=== PATIENT | male | born 1945 | race Caucasian/White ===

== ENCOUNTER 2018-05-31 09:48 | Emergency (ER) | payer OTHER ==
[2018-05-31 10:02] VITALS: BMI 27.1
--- NOTE | 2018-05-31 10:29 | PDOC ---
History of Present Illness - General Chief Complaint: Pain, Acute Stated Complaint: RIGHT FOOT PAIN Time Seen by Provider: 05/31/18 10:19 History Source: Patient Exam Limitations: No Limitations - History of Present Illness Initial Comments: 05/31/18 10:36 Patient is a 73-year-old male with past medical history of hypertension, BPH, prediabetes, who presents to the ER for pain to his right foot. Patient states that he noticed swelling to his right foot that has increased and decreased in size over the past 3 days. He states that now it hurts to walk on. Denies trauma or fall. Patient denies fevers, chills, weakness to the extremity, numbness and tingling to the extremity, nausea and vomiting. Past History - Travel Traveled outside of the country in the last 30 days: No Close contact w/someone who was outside of country & ill: No - Past Medical History Allergies/Adverse Reactions: Allergies Allergy/AdvReac Type Severity Reaction Status Date / Time No Known Drug Allergies Allergy Verified 03/18/14 18:38 Home Medications: Ambulatory Orders Amlodipine Besylate [Norvasc] 10 mg PO DAILY 12/30/11 Cephalexin Monohydrate [Keflex -] 500 mg PO BID #14 capsule 05/31/18 Ibuprofen 600 mg PO Q6H #30 tablet 05/31/18 Sulfamethoxazole/Trimethoprim [Bactrim Ds -] 1 tab PO BID #14 tablet 05/31/18 Tamsulosin HCl [Flomax] 0.4 mg PO DAILY 05/31/18 Anemia: No Asthma: No Cancer: No Cardiac Disorders: No CVA: No COPD: Yes CHF: No Dementia: No Diabetes: No GI Disorders: No Disorders: Yes (enlarged prostate) HTN: Yes Hypercholesterolemia: No Liver Disease: No Seizures: No Thyroid Disease: No - Surgical History Abdominal Surgery: Yes (HERNIA REPAIR) Appendectomy: No Cardiac Surgery: No Cholecystectomy: No Lung Surgery: No Neurologic Surgery: No Orthopedic Surgery: Yes (LEFT ARTHROSCOPY,RIGHT ROTATOR CUFF REPAIR) - Suicide/Smoking/Psychosocial Hx Smoking History: Current every day smoker Have you smoked in the past 12 months: Yes Number of Cigarettes Smoked Daily: 30 Information on smoking cessation initiated: No 'Breaking Loose' booklet given: 12/30/11 Hx Alcohol Use: No Drug/Substance Use Hx: No Substance Use Type: None Hx Substance Use Treatment: No Review of Systems - Review of Systems Able to Perform ROS?: Yes Comments:: 05/31/18 14:09 CONSTITUTIONAL: Absent: fever, chills, diaphoresis, generalized weakness, malaise, loss of appetite HEENT: Absent: rhinorrhea, nasal congestion, throat pain, throat swelling, difficulty swallowing, mouth swelling, ear pain, eye pain, visual Changes CARDIOVASCULAR: Absent: chest pain, loss of consciousness, palpitations, irregular heart rate, peripheral edema RESPIRATORY: Absent: cough, shortness of breath, dyspnea with exertion, orthopnea, wheezing, stridor, hemoptysis GASTROINTESTINAL: Absent: abdominal pain, abdominal distension, nausea, vomiting, diarrhea, constipation, melena, hematochezia GENITOURINARY: Absent: dysuria, frequency, urgency, hesitancy, hematuria, flank pain, genital pain MUSCULOSKELETAL: Present: R foot pain Absent: myalgia, arthralgia, joint swelling SKIN: Absent: rash, itching, pallor HEMATOLOGIC/IMMUNOLOGIC: Absent: easy bleeding, easy bruising, lymphadenopathy, frequent infections ENDOCRINE: Absent: unexplained weight gain, unexplained weight loss, heat intolerance, cold intolerance NEUROLOGIC: Absent: headache, focal weakness or paresthesias, dizziness, unsteady gait, seizure, mental status changes, bladder or bowel incontinence PSYCHIATRIC: Absent: anxiety, depression, suicidal or homicidal ideation, hallucinations. Is the patient limited Slovenian proficient: No *Physical Exam - Vital Signs Last Vital Signs Temp Pulse Resp BP Pulse Ox 98.1 F 67 18 160/64 99 05/31/18 10:01 05/31/18 10:01 05/31/18 10:01 05/31/18 10:05/31/18 10:01 - Physical Exam Comments: 05/31/18 14:11 GENERAL: Well developed, well nourished. Awake and alert. No acute distress. HEENT: Normocephalic, atraumatic. PERRLA, EOMI. No conjunctival pallor. Sclera are non- icteric. Moist mucous membranes. Oropharynx is clear. NECK: Supple. Full ROM. No JVD. Carotid pulses 2+ and symmetric, without bruits. No thyromegaly. No lymphadenopathy. CARDIOVASCULAR: Regular rate and rhythm. No murmurs, rubs, or gallops. Distal pulses are 2+ and symmetric. PULMONARY: No evidence of respiratory distress. Lungs clear to auscultation bilaterally. No wheezing, rales or rhonchi. ABDOMINAL: Soft. Non-tender. Non-distended. No rebound or guarding. No organomegaly. Normoactive bowel sounds. MUSCULOSKELETAL Tenderness to palpation of the right medial volar foot. Fluctuance felt underneath the foot. Normal range of motion at all joints. No bony deformities or tenderness. No CVA tenderness. EXTREMITIES: No cyanosis. No clubbing. No edema. No calf tenderness. SKIN: No evidence of cellulitis. Warm and dry. Normal capillary refill. No rashes. No jaundice. NEUROLOGICAL: Alert, awake, appropriate. Cranial nerves 2-12 intact. No deficits to light touch and temperature in face, upper extremities and lower extremities. No motor deficits in the in face, upper extremities and lower extremities. Normoreflexic in the upper and lower extremities. Normal speech. Toes are down- going bilaterally. Gait is normal without ataxia. PSYCHIATRIC: Cooperative. Good eye contact. Appropriate mood and affect. Moderate Sedation - Procedure Monitoring Vital Signs: Procedure Monitoring Vital Signs Temperature 98.1 F 05/31/18 10:01 Pulse Rate 67 05/31/18 10:01 Respiratory Rate 18 05/31/18 10:01 Blood Pressure 160/64 05/31/18 10:01 O2 Sat by Pulse Oximetry (%) 99 05/31/18 10:01 ED Treatment Course - LABORATORY CBC & Chemistry Diagram: 05/31/18 10:44 05/31/18 10:44 Medical Decision Making - Medical Decision Making 05/31/18 12:37 Patient 73-year-old male past medical history of hypertension, BPH, prediabetes , who presents to the ER for worsening pain to his right foot. On exam patient with fluctuance to the right medial volar foot no evidence of cellulitis. Questionable skin infection? Basic labs ordered, x-ray and ultrasound ordered for further evaluation of this fluctuance. Re-evaluate 05/31/18 15:37 Lab work is grossly normal, no leukocytosis, electrolytes are grossly normal. X-ray shows no fracture or dislocation. Ultrasound shows hypervascularity to the foot possible early abscess/cellulitis We'll treat with antibiotics and Motrin at this time. Podiatry follow-up given. Discharge home I discussed the physical exam findings, ancillary test results and final diagnoses with the patient. I answered all of the patient's questions. The patient was satisfied with the care received and felt comfortable with the discharge plan and treatment plan. The Patient agrees to follow up with the primary care physician/specialist within 24-72 hours. Return precautions were given. *DC/Admit/Observation/Transfer Diagnosis at time of Disposition: Cellulitis Qualifiers: Site of cellulitis: extremity Site of cellulitis of extremity: lower extremity Laterality: right Qualified Code(s): L03.115 - Cellulitis of right lower limb - Discharge Dispostion Disposition: HOME Condition at time of disposition: Stable Decision to Admit order: No - Prescriptions Prescriptions: Cephalexin Monohydrate [Keflex -] 500 mg PO BID #14 capsule Ibuprofen 600 mg PO Q6H #30 tablet Sulfamethoxazole/Trimethoprim [Bactrim Ds -] 1 tab PO BID #14 tablet - Referrals Referrals: Willy Mahoney MD [Staff Physician] - James Lal DPM [Staff Physician] - - Patient Instructions Printed Discharge Instructions: DI for Cellulitis -- Adult Additional Instructions: You have cellulitis. This is a skin infection. Please take the Bactrim and Keflex twice a day for one week. Please take all the antibiotics even if you feel better. You may use warm water soaks to the area. Please do this approximately 4-5 times a day. Please avoid shaving the skin around the area of redness. You may take Tylenol or Motrin as needed for pain. Follow the manufacture's instructions Please follow up Podiatry in 2-3 days for further evaluation Return to the emergency department if you have worsening redness, fevers, increasing pain, or have any changes in your symptoms. - Post Discharge Activity
[2018-05-31 10:56] LABS: BASO % 0.5 % (0-2.0); HEMATOCRIT 43.7 % (35.4-49); HEMOGLOBIN 15.8 GM/dL (11.7-16.9); LYMPH % 18.4 % (8-40); MCH 31.5 pg (25.7-33.7); MCHC 36.1 g/dl (32.0-35.9); MEAN CELL VOLUME 87.2 fl (80-96); MONO % 6.3 % (3.8-10.2); NEUT % 72.8 % (42.8-82.8); PLATELET COUNT 178 K/MM3 (134-434); RBC 5.01 M/mm3 (4.00-5.60); RDW 13.4 % (11.9-15.9); WHITE BLOOD COUNT 11.4 K/mm3 (4.0-10.0)
[2018-05-31 11:23] LABS: ALBUMIN 4.4 g/dl (3.4-5.0); ALK PHOS 80 U/L (45-117); ANION GAP 6 MMOL/L (8-16); BILIRUBIN,TOTAL 0.6 mg/dL (0.2-1); BLOOD UREA NITROGEN 19 mg/dL (7-18); CALCIUM 9.5 mg/dL (8.5-10.1); CHLORIDE 104 mmol/L (98-107); CO2 29 mmol/L (21-32); CREATININE 1.2 mg/dL (0.55-1.3); GLUCOSE,RANDOM 93 mg/dL (74-106); POTASSIUM 4.4 mmol/L (3.5-5.1); SGOT/AST 14 U/L (15-37); SGPT/ALT 32 U/L (13-61); SODIUM 139 mmol/L (136-145); TOT PROT 7.8 g/dl (6.4-8.2); URIC ACID 6.7 mg/dL (2.6-7.2)
[2018-05-31] MEDS ORDERED: IBUPROFEN 400 MG TABLET (FP) PO ONE ×2 (11:26→11:27)
[2018-05-31 12:18] VITALS: BP 138/71; PULSE 61; TEMP 99.1
== END 2018-05-31 14:36 | disposition home or self-care (01) ==
LOC: JER 09:48
DX: L03.115 Cellulitis of right lower limb (principal); I10 Essential (primary) hypertension; N40.0 Benign prostatic hyperplasia without lower urinary tract symptoms; R73.03 Prediabetes
CPT/HCPCS: 36415; 73630-TC-RT-FY; 76882-TC-RT-FY; 80053; 84550; 85025; 99282-25

== ENCOUNTER 2019-10-25 04:45 | Day surgery (SDC) | payer OTHER ==
[2019-10-24 15:28] VITALS: BMI 27.4
[2019-10-25] MEDS ORDERED: LIDOCAINE HCL/PF 2% SDV 5ML VIAL ONE (07:01)
[2019-10-25] MEDS ORDERED: EPHEDRINE SULFATE/0.9% NACL/PF 50 MG/10 ML SYRINGE NR ONE (07:01)
[2019-10-25] MEDS ORDERED: PROPOFOL 20 ML ONE ×2 (07:01)
[2019-10-25] MEDS ORDERED: SUCCINYLCHOLINE CHLORIDE 200 MG/10 ML SYRINGE ONE ×2 (07:02)
[2019-10-25] MEDS ORDERED: MIDAZOLAM HCL 2 MG/2 ML SINGLE DOSE VIAL ONE (07:02)
[2019-10-25] MEDS ORDERED: DEXAMETHASONE SOD PHOSPHATE 4 MG/1 ML VIAL ONE (07:29)
[2019-10-25] MEDS ORDERED: ACETAMINOPHEN 1000 MG/100 ML VIAL (NON FORMULARY) IVPB ONE ×2 (07:42→09:10)
--- NOTE | 2019-10-25 07:43 | HP ---
History & Physical Update - History History: No Change - Physical Physical: No Change - Assessment Assessment: No Change - Plan Plan: No Change
[2019-10-25] MEDS ORDERED: IBUPROFEN 800 MG/8 ML IJ IVPB SCH (07:45)
[2019-10-25] MEDS ORDERED: DEXTROSE 5%-0.45% SALINE 1,000 ML IV SCH (07:45)
[2019-10-25] MEDS ORDERED: ceFAZolin 2 GRAM PREMIX BAG IVPB ONE (07:55)
[2019-10-25] MEDS ORDERED: ONDANSETRON 4 MG/2 ML VIAL IVPUSH PRN (08:12)
[2019-10-25] MEDS ORDERED: oxyCODONE HCL 5 MG TABLET PO PRN (08:12)
[2019-10-25] MEDS ORDERED: LACTATED RINGERS SOLUTION 1,000 ML IV SCH (08:15)
[2019-10-25] MEDS ORDERED: ACETAMINOPHEN INJECTION 100 ML IVPB ONE (08:58)
[2019-10-25] MEDS ORDERED: IBUPROFEN 800 MG/8 ML IJ IVPB ONE ×2 (09:24→09:38)
[2019-10-25] MEDS ORDERED: oxyCODONE HCL 5 MG TABLET ONE (12:51)
[2019-10-25 13:00] VITALS: TEMP 98
[2019-10-25 14:04] VITALS: BP 140/69; PULSE 66
--- NOTE | 2019-10-25 20:03 | OP ---
DATE OF OPERATION: 10/25/2019 PREOPERATIVE DIAGNOSIS: Benign prostatic hypertrophy with lower urinary tract symptoms and slow urinary stream. POSTOPERATIVE DIAGNOSIS: Benign prostatic hypertrophy with lower urinary tract symptoms and slow urinary stream. PROCEDURE: GreenLight laser prostatectomy. SURGEON: Anup Lundberg MD. ANESTHESIA: General anesthesia. ANESTHESIOLOGIST: Vandana Harris MD. ESTIMATED BLOOD LOSS: 25 mL. SPECIMENS: Prostate tissue. FINDINGS: Obstructed lateral prostate tissue with enlarged middle lobe. Findings, trabeculation of the bladder, both ureteral orifices visualized, urinary sphincter also visualized. DRAINS: 20 Mongolian Thayer catheter. PREOPERATIVE INDICATION: The patient is a 74-year-old man with severe lower urinary tract symptoms including slow urinary stream secondary to enlarged prostate. His prostate was measured at approximately 120 g on MRI. PSA is 3.7. He had an MRI which ruled out any suspicious lesions for prostate cancer. He comes to OR today for GreenLight laser prostatectomy. Risks, benefits, and alternatives discussed with the patient including risk of bleeding, infection, urinary incontinence, bladder injury. DESCRIPTION OF PROCEDURE: The patient was brought to the OR, placed on the table in the supine position. Given general anesthesia and IV antibiotics and placed in the modified lithotomy position. The groin was prepped and draped sterilely. Timeout was performed. Cystoscopy was performed. Urethra was unremarkable. Sphincter was visualized. The prostate was enlarged and obstructed. There were large lateral lobes, and there was a very large middle lobe as well which was obstructing the bladder neck. The bladder was examined. There were trabeculations throughout. Both UOs were visualized. Using the GreenLight laser, initially the middle lobe was treated. After this was done, both UOs were seen and had no evidence of injury. The portion of the middle lobe that was amputated with the laser was pulled out with the grasper and sent for pathology. The lateral lobes were then treated with the GreenLight laser similarly to open up the prostate channel. At the bladder neck and at the verumontanum, laser energy of 60 was used; for the rest of the prostate energy of 160 was used. At the end of the procedure after 120,000 joules were used, there was an open prostatic channel. No significant bleeding was visualized. The bladder did not appear injured either . The sphincter was also intact. The Thayer catheter was placed. The patient was woken up. Lacey [id number]
== END 2019-10-25 14:00 | disposition home or self-care (01) ==
LOC: JASU-SURG 04:45
PROVIDERS: ATTEND Urology
PROC: 0VT08ZZ Resection of Prostate, Via Natural or Artificial Opening Endoscopic (ICD-10-PCS; principal; 2019-10-25 07:30)
DX: N40.1 Benign prostatic hyperplasia with lower urinary tract symptoms (principal); R39.198 Other difficulties with micturition
CPT/HCPCS: 94760; J0131

== ENCOUNTER 2022-05-03 11:42 | Inpatient (IN) | payer OTHER ==
[2022-05-03] MEDS ORDERED: ALBUTEROL SO4 2.5/IPRATROPIUM 0.5 INH SOL 3 ML VIAL.NEB. NEB ONE ×3 (11:56→14:13)
[2022-05-03] MEDS ORDERED: methylPREDNISolone NA SUCC 125 MG/2 ML VIAL IVPB ONE (12:43)
[2022-05-03] MEDS ORDERED: methylPREDNISolone NA SUCC 125 MG/2 ML VIAL ONE (12:58)
[2022-05-03 13:37] LABS: INR 1.18 (0.83-1.09); PROTHROMBIN TIME (PATIENT) 13.6 SEC (9.7-13.0)
[2022-05-03 13:39] LABS: ACTIVATED PTT 34.7 SECONDS (25.2-36.5)
[2022-05-03 13:46] LABS: ALBUMIN 3.5 g/dl (3.4-5.0); BILIRUBIN,TOTAL 0.7 mg/dl (0.2-1); CALCIUM 8.5 mg/dl (8.5-10); CREATININE 1.9 mg/dl (0.55-1.3); MAGNESIUM 2.2 mg/dL (1.8-2.4)
[2022-05-03 13:54] LABS: HEMATOCRIT 35.1 % (35.4-49); HEMOGLOBIN 12.4 G/dL (11.7-16.9); MCH 30.8 pg (25.7-33.7); MCHC 35.3 g/dl (32.0-35.9); MEAN CELL VOLUME 87.2 fl (80-96); MEAN PLT VOLUME 8.6 fl (7.5-11.1); PLATELET COUNT 224.7 10^3/uL (134-434); RBC 4.03 10^6/uL (4.00-5.60); RDW 13.3 % (11.9-15.9); WHITE BLOOD COUNT 10.4 10^3/uL (4.0-10.8)
[2022-05-03] MEDS ORDERED: SODIUM CHLORIDE 0.9% 1000 ML INFUS.BAG IV ONE (14:07)
[2022-05-03] MEDS ORDERED: ALBUTEROL SO4 0.083% IH SOL 2.5 MG/3 ML VIAL.NEB. NEB ONE (14:10)
[2022-05-03] MEDS ORDERED: guaiFENesin/CODEINE 10 ML UNIT-DOSE CUPS PO ONE ×2 (14:56→19:51)
[2022-05-03] MEDS ORDERED: guaiFENesin/CODEINE 10 ML UNIT-DOSE CUPS ONE ×2 (14:59→19:51)
[2022-05-03 16:03] LABS: VENOUS BASE EXCESS -2.7 mmol/L (-2-2); VENOUS O2 SATURATION 77.6 % (70-80); VENOUS PCO2 43.4 mmHg (38-52); VENOUS PH 7.343 (7.310-7.410)
[2022-05-03 16:30] LABS: N-TERMINAL BNP 3430.8 pg/ml (5-450)
[2022-05-03 16:46] LABS: PLATELET ESTIMATE ADEQUATE
[2022-05-03 17:34] LABS: CALCIUM 7.9 mg/dl (8.5-10); CREATININE 1.7 mg/dl (0.55-1.3)
[2022-05-03] MEDS ORDERED: AZITHROMYCIN IVPB 500 MG in DEXTROSE 5%-WATER - 250 ML IVPB ONE (23:53)
[2022-05-04] MEDS ORDERED: AZITHROMYCIN IVPB 500 MG/250 ML BAG IVPB ONE (00:41)
[2022-05-04] MEDS: guaiFENesin 200 MG/10 ML 10 ML UNIT-DOSE CUPS PO PRN (00:52)
[2022-05-04] MEDS: methylPREDNISolone NA SUCC 40 MG/1 ML VIAL IVPUSH SCH ×3 (01:50→17:09)
[2022-05-04 07:09] VITALS: BMI 60.5
[2022-05-04 07:59] LABS: BILIRUBIN,TOTAL 0.5 mg/dl (0.2-1); CALCIUM 8.1 mg/dl (8.5-10); CREATININE 1.5 mg/dl (0.55-1.3); TOT PROT 6.1 g/dl (6.4-8.2)
[2022-05-04 09:18] LABS: CHOLESTEROL 154 mg/dl (50-200); HDL CHOLESTEROL 22 mg/dl (40-60); LDL CHOLESTEROL (ONLY DFH) 109 mg/dl (5-100); TRIGLYCERIDES 117 mg/dl (0-150)
[2022-05-04] MEDS: ATORVASTATIN CA 80 MG TABLET (FP) PO SCH ×2 (09:52→21:45)
[2022-05-04] MEDS: CLOPIDOGREL BISULFATE 75 MG TABLET (FP) PO SCH (09:52)
[2022-05-04] MEDS: HEPARIN NA (PORCINE) 5,000 UNITS/ML 1ML VIAL SQ SCH ×2 (09:52→21:46)
[2022-05-04] MEDS: ASPIRIN 81 MG CHEWABLE TABLETS PO SCH (09:52)
[2022-05-04 10:27] LABS: HEMOGLOBIN 10.7 GM/dL (11.7-16.9); MCHC 33.5 g/dl (32.0-35.9); MEAN CELL VOLUME 86.6 fl (80-96); MEAN PLT VOLUME 8.7 fl (7.5-11.1); PLATELET COUNT 232 10^3/uL (134-434); RBC 3.69 M/mm3 (4.00-5.60); WHITE BLOOD COUNT 9.5 K/mm3 (4.0-10.0)
[2022-05-04 12:18] LABS: ANISOCYTOSIS 0; HELMET CELLS 0; HOWELL-JOLLY BODIES 0; MACROCYTOSIS 0; OVALOCYTE 0; ROULEAU 0; SICKELED CELLS 0; TARGET CELLS 0; TEAR DROP CELLS 0; TOXIC GRANULATION 0
[2022-05-05] MEDS: guaiFENesin 200 MG/10 ML 10 ML UNIT-DOSE CUPS PO PRN (01:18)
[2022-05-05] MEDS: methylPREDNISolone NA SUCC 40 MG/1 ML VIAL IVPUSH SCH ×3 (01:18→18:26)
[2022-05-05 07:47] LABS: ALBUMIN 2.9 g/dl (3.4-5.0); BILIRUBIN,TOTAL 0.4 mg/dl (0.2-1); CALCIUM 8.3 mg/dl (8.5-10); CREATININE 1.6 mg/dl (0.55-1.3); TOT PROT 5.7 g/dl (6.4-8.2)
[2022-05-05 09:40] LABS: BASO % 0.2 % (0-2.0); HEMOGLOBIN 10.5 GM/dL (11.7-16.9); LYMPH % 8.2 % (8-40); MCH 29.3 pg (25.7-33.7); MEAN CELL VOLUME 86.1 fl (80-96); MEAN PLT VOLUME 8.4 fl (7.5-11.1); MONO % 4.5 % (3.8-10.2); NEUT % 87.1 % (42.8-82.8); PLATELET COUNT 245 10^3/uL (134-434); RBC 3.61 M/mm3 (4.00-5.60); RDW 13.9 % (11.9-15.9); WHITE BLOOD COUNT 15.8 K/mm3 (4.0-10.0)
[2022-05-05] MEDS: amLODIPine BESYLATE 5 MG TABLET (FP) PO SCH (09:55)
[2022-05-05] MEDS: AZITHROMYCIN IVPB 500 MG/250 ML BAG IVPB SCH (09:55)
[2022-05-05] MEDS: ASPIRIN 81 MG CHEWABLE TABLETS PO SCH (09:55)
[2022-05-05] MEDS: CLOPIDOGREL BISULFATE 75 MG TABLET (FP) PO SCH (09:55)
[2022-05-05] MEDS: HEPARIN NA (PORCINE) 5,000 UNITS/ML 1ML VIAL SQ SCH ×2 (09:55→22:17)
[2022-05-05 10:10] LABS: ANISOCYTOSIS 0; HELMET CELLS 0; HOWELL-JOLLY BODIES 0; MACROCYTOSIS 0; OVALOCYTE 0; ROULEAU 0; SICKELED CELLS 0; TARGET CELLS 0; TEAR DROP CELLS 0; TOXIC GRANULATION 0
[2022-05-05] MEDS: ALBUTEROL SO4 0.083% IH SOL 2.5 MG/3 ML VIAL.NEB. NEB PRN (22:17)
[2022-05-05] MEDS: ATORVASTATIN CA 80 MG TABLET (FP) PO SCH (22:17)
[2022-05-06] MEDS: methylPREDNISolone NA SUCC 40 MG/1 ML VIAL IVPUSH SCH ×3 (01:16→17:00)
[2022-05-06 07:53] LABS: BILIRUBIN,TOTAL 0.5 mg/dl (0.2-1); CALCIUM 8.6 mg/dl (8.5-10); CREATININE 1.5 mg/dl (0.55-1.3); TOT PROT 5.9 g/dl (6.4-8.2)
[2022-05-06 09:04] LABS: HEMATOCRIT 32.5 % (35.4-49); HEMOGLOBIN 10.9 GM/dL (11.7-16.9); MCH 28.9 pg (25.7-33.7); MCHC 33.6 g/dl (32.0-35.9); MEAN CELL VOLUME 86.2 fl (80-96); MEAN PLT VOLUME 8.2 fl (7.5-11.1); PLATELET COUNT 273 10^3/uL (134-434); RBC 3.77 M/mm3 (4.00-5.60); RDW 13.7 % (11.9-15.9); WHITE BLOOD COUNT 20.9 K/mm3 (4.0-10.0)
[2022-05-06] MEDS ORDERED: LISINOPRIL 5 MG TABLET PO SCH (10:00)
[2022-05-06 10:09] LABS: ANISOCYTOSIS 0; HELMET CELLS 0; HOWELL-JOLLY BODIES 0; MACROCYTOSIS 0; OVALOCYTE 0; ROULEAU 0; SICKELED CELLS 0; TARGET CELLS 0; TEAR DROP CELLS 0; TOXIC GRANULATION 0
[2022-05-06] MEDS: ASPIRIN 81 MG CHEWABLE TABLETS PO SCH (10:22)
[2022-05-06] MEDS: amLODIPine BESYLATE 5 MG TABLET (FP) PO SCH (10:22)
[2022-05-06] MEDS: CLOPIDOGREL BISULFATE 75 MG TABLET (FP) PO SCH (10:22)
[2022-05-06] MEDS: HEPARIN NA (PORCINE) 5,000 UNITS/ML 1ML VIAL SQ SCH ×2 (10:22→21:22)
[2022-05-06] MEDS: AZITHROMYCIN IVPB 500 MG/250 ML BAG IVPB SCH (10:23)
[2022-05-06] MEDS ORDERED: amLODIPine BESYLATE 5 MG TABLET (FP) PO ONE (16:02)
[2022-05-06] MEDS: ALBUTEROL SO4 0.083% IH SOL 2.5 MG/3 ML VIAL.NEB. NEB PRN (18:24)
[2022-05-06] MEDS: guaiFENesin 200 MG/10 ML 10 ML UNIT-DOSE CUPS PO PRN (18:25)
[2022-05-06] MEDS: ATORVASTATIN CA 80 MG TABLET (FP) PO SCH (21:22)
[2022-05-07] MEDS: methylPREDNISolone NA SUCC 40 MG/1 ML VIAL IVPUSH SCH ×3 (01:50→17:28)
[2022-05-07 08:17] LABS: ALBUMIN 3.1 g/dl (3.4-5.0); BILIRUBIN,TOTAL 0.6 mg/dl (0.2-1); CALCIUM 8.4 mg/dl (8.5-10); CREATININE 1.4 mg/dl (0.55-1.3)
[2022-05-07] MEDS ORDERED: SODIUM ZIRCONIUM CYCLOSILICATE (LOKELMA) 5 GM PACKET PO SCH (10:00)
[2022-05-07] MEDS: guaiFENesin 200 MG/10 ML 10 ML UNIT-DOSE CUPS PO PRN (10:04)
[2022-05-07] MEDS: amLODIPine BESYLATE 10 MG TABLET (FP) PO SCH (10:04)
[2022-05-07] MEDS: CLOPIDOGREL BISULFATE 75 MG TABLET (FP) PO SCH (10:04)
[2022-05-07] MEDS: HEPARIN NA (PORCINE) 5,000 UNITS/ML 1ML VIAL SQ SCH ×2 (10:04→21:20)
[2022-05-07] MEDS: ASPIRIN 81 MG CHEWABLE TABLETS PO SCH (10:04)
[2022-05-07] MEDS: AZITHROMYCIN IVPB 500 MG/250 ML BAG IVPB SCH (10:07)
[2022-05-07 10:35] LABS: HEMATOCRIT 34.3 % (35.4-49); HEMOGLOBIN 11.1 GM/dL (11.7-16.9); MCH 28.2 pg (25.7-33.7); MCHC 32.5 g/dl (32.0-35.9); MEAN CELL VOLUME 86.9 fl (80-96); MEAN PLT VOLUME 8.1 fl (7.5-11.1); PLATELET COUNT 298 10^3/uL (134-434); RBC 3.95 M/mm3 (4.00-5.60); RDW 13.9 % (11.9-15.9); WHITE BLOOD COUNT 28.4 K/mm3 (4.0-10.0)
[2022-05-07] MEDS: ATORVASTATIN CA 80 MG TABLET (FP) PO SCH (21:20)
[2022-05-07] MEDS: ALBUTEROL SO4 0.083% IH SOL 2.5 MG/3 ML VIAL.NEB. NEB PRN (22:44)
[2022-05-08] MEDS: methylPREDNISolone NA SUCC 40 MG/1 ML VIAL IVPUSH SCH ×3 (03:32→18:05)
[2022-05-08 09:12] LABS: ALBUMIN 3.3 g/dl (3.4-5.0); BILIRUBIN,TOTAL 0.7 mg/dl (0.2-1); CALCIUM 9.1 mg/dl (8.5-10); CREATININE 1.5 mg/dl (0.55-1.3); TOT PROT 6.2 g/dl (6.4-8.2)
[2022-05-08] MEDS: HEPARIN NA (PORCINE) 5,000 UNITS/ML 1ML VIAL SQ SCH ×2 (09:48→21:39)
[2022-05-08] MEDS: amLODIPine BESYLATE 10 MG TABLET (FP) PO SCH (09:48)
[2022-05-08] MEDS: ASPIRIN 81 MG CHEWABLE TABLETS PO SCH (09:48)
[2022-05-08] MEDS: CLOPIDOGREL BISULFATE 75 MG TABLET (FP) PO SCH (09:49)
[2022-05-08] MEDS: CEFUROXIME AXETIL 500 MG TABLET PO SCH ×2 (09:52→21:39)
[2022-05-08 11:34] LABS: HEMOGLOBIN 12.1 G/dL (11.7-16.9); MCHC 34.6 g/dl (32.0-35.9); MEAN CELL VOLUME 86.9 fl (80-96); MEAN PLT VOLUME 8.2 fl (7.5-11.1); PLATELET COUNT 314.3 10^3/uL (134-434); RBC 4.03 10^6/uL (4.00-5.60); RDW 14.2 % (11.9-15.9); WHITE BLOOD COUNT 32.8 10^3/uL (4.0-10.8)
[2022-05-08] MEDS ORDERED: SODIUM ZIRCONIUM CYCLOSILICATE (LOKELMA) 5 GM PACKET PO SCH (14:45)
[2022-05-08] MEDS ORDERED: LISINOPRIL 5 MG TABLET PO SCH (14:45)
[2022-05-08] MEDS ORDERED: MELATONIN 5 MG TABLETS PO PRN (14:53)
[2022-05-08] MEDS: SODIUM ZIRCONIUM CYCLOSILICATE (LOKELMA) 5 GM PACKET PO SCH (18:05)
[2022-05-08] MEDS: ATORVASTATIN CA 80 MG TABLET (FP) PO SCH (21:39)
[2022-05-09] MEDS: methylPREDNISolone NA SUCC 40 MG/1 ML VIAL IVPUSH SCH (01:54)
[2022-05-09 08:34] LABS: CREATININE 1.3 mg/dl (0.55-1.3)
[2022-05-09 08:52] LABS: HEMATOCRIT 32.2 % (35.4-49); HEMOGLOBIN 10.8 G/dL (11.7-16.9); MCH 29.2 pg (25.7-33.7); MCHC 33.6 g/dl (32.0-35.9); MEAN CELL VOLUME 87.1 fl (80-96); MEAN PLT VOLUME 8.1 fl (7.5-11.1); PLATELET COUNT 298.6 10^3/uL (134-434); WHITE BLOOD COUNT 29.6 10^3/uL (4.0-10.8)
[2022-05-09 09:16] LABS: CALCIUM 8.2 mg/dl (8.5-10)
[2022-05-09] MEDS ORDERED: BUDESONIDE/FORMETEROL FUMARATE 160/4.5 mcg INHALER IH SCH (10:00)
[2022-05-09] MEDS ORDERED: LISINOPRIL 10 MG TABLET PO SCH (10:00)
[2022-05-09] MEDS ORDERED: predniSONE 20 MG TABLET (UD) PO SCH (10:00)
[2022-05-09] MEDS: CEFUROXIME AXETIL 500 MG TABLET PO SCH (10:49)
[2022-05-09] MEDS: amLODIPine BESYLATE 10 MG TABLET (FP) PO SCH (10:49)
[2022-05-09] MEDS: CLOPIDOGREL BISULFATE 75 MG TABLET (FP) PO SCH (10:49)
[2022-05-09] MEDS: SODIUM ZIRCONIUM CYCLOSILICATE (LOKELMA) 5 GM PACKET PO SCH (10:50)
[2022-05-09] MEDS: HEPARIN NA (PORCINE) 5,000 UNITS/ML 1ML VIAL SQ SCH (10:50)
[2022-05-09] MEDS: ASPIRIN 81 MG CHEWABLE TABLETS PO SCH (10:50)
[2022-05-09 10:58] VITALS: BP 171/56; PULSE 68; RESP 18; TEMP 98.4
== END 2022-05-09 13:16 | disposition home or self-care (01) | DRG 191 ==
LOC: FER 11:42 → UNDOADMOB 16:03 → FM/S 16:03 → OBSVTOIN 17:11 → INTOOBSV 17:11 → OBSVTOIN 05-04 17:11 → FM/S 05-04 17:11
PROVIDERS: ADMIT Internal Medicine; ATTEND Internal Medicine
DX: J44.1 Chronic obstructive pulmonary disease with (acute) exacerbation (principal); I13.0 Hypertensive heart and chronic kidney disease with heart failure and stage 1 through stage 4 chronic kidney disease, or unspecified chronic kidney disease; N17.9 Acute kidney failure, unspecified; I50.32 Chronic diastolic (congestive) heart failure; I24.8 Other forms of acute ischemic heart disease; N40.0 Benign prostatic hyperplasia without lower urinary tract symptoms; I25.10 Atherosclerotic heart disease of native coronary artery without angina pectoris; R77.8 Other specified abnormalities of plasma proteins; E78.5 Hyperlipidemia, unspecified; F41.9 Anxiety disorder, unspecified; D64.9 Anemia, unspecified; N18.9 Chronic kidney disease, unspecified; R31.9 Hematuria, unspecified; D72.829 Elevated white blood cell count, unspecified; E87.5 Hyperkalemia; J06.9 Acute upper respiratory infection, unspecified; Z95.5 Presence of coronary angioplasty implant and graft
CPT/HCPCS: 0241U-QW; 36415; 71046-TC-FY; 80048; 80053; 80061; 81003; 81015; 82272; 82436; 82803; 82962; 83036; 83735; 83880; 83930; 83935; 84133; 84300; 84439; 84443; 84484; 85025; 85027; 85610; 85730; 93005; 93306-TC; 94640; 97116-GP; 97162-GP; 99285-25; G0378; J1644

== ENCOUNTER 2022-05-25 09:55 | Emergency (ER) | payer OTHER ==
[2022-05-25 10:06] VITALS: BP 163/64; PULSE 62; RESP 20; TEMP 98; BMI 27.4
[2022-05-25] MEDS ORDERED: SILVER NITRATE 75% APPLIC STCK 1 PKT EACH ONE ×2 (10:09→10:22)
[2022-05-25] MEDS ORDERED: LIDOCAINE 1%/EPI 1:100000 (20 ML MULTI DOSE VIAL) IJ ONE (10:25)
[2022-05-25] MEDS ORDERED: LIDO 2%/EPI 1:200000 PRESRVFRE (20 ML SDVIAL) ONE (10:26)
== END 2022-05-25 11:55 | disposition home or self-care (01) ==
LOC: FER 09:55
DX: R04.0 Epistaxis (principal)
CPT/HCPCS: 99283-25

== ENCOUNTER 2022-07-28 05:42 | Day surgery (SDC) | payer OTHER ==
[2022-07-27 10:46] VITALS: BMI 27.3
[2022-07-28] MEDS ORDERED: FENTANYL CITRATE/PF 50 MCG/ML VIAL ONE (11:16)
[2022-07-28 13:15] VITALS: BP 145/65; PULSE 54; RESP 18
[2022-07-28 14:05] VITALS: TEMP 97.2
== END 2022-07-28 12:55 | disposition home or self-care (01) ==
LOC: JASU-ENDO 05:42
PROVIDERS: ATTEND Internal Medicine Gastroenterology
PROC: 0DJD8ZZ Inspection of Lower Intestinal Tract, Via Natural or Artificial Opening Endoscopic (ICD-10-PCS; principal; 2022-07-28 11:00)
DX: Z12.11 Encounter for screening for malignant neoplasm of colon (principal); K64.8 Other hemorrhoids; Z86.010 Personal history of colon polyps
CPT/HCPCS: 88305-TC; 88342-TC

== ENCOUNTER 2024-01-17 16:47 | Inpatient (IN) | payer OTHER ==
[2024-01-17] MEDS ORDERED: ALBUTEROL SO4 2.5/IPRATROPIUM 0.5 INH SOL 3 ML VIAL.NEB. NEB ONE (18:32)
[2024-01-17] MEDS: ALBUTEROL SO4 2.5/IPRATROPIUM 0.5 INH SOL 3 ML VIAL.NEB. NEB SCH (18:37)
[2024-01-17] MEDS ORDERED: methylPREDNISolone NA SUCC 125 MG/2 ML VIAL ONE (18:47)
[2024-01-17 18:51] LABS: BASO % 0.5 % (0-2.0); HEMATOCRIT 31.8 % (35.4-49); HEMOGLOBIN 10.9 GM/dL (11.7-16.9); MCH 29.5 pg (25.7-33.7); MCHC 34.4 g/dl (32.0-35.9); MEAN CELL VOLUME 85.8 fl (80-96); MEAN PLT VOLUME 7.1 fl (7.5-11.1); MONO % 8.4 % (3.8-10.2); NEUT % 70.1 % (42.8-82.8); PLATELET COUNT 148 10^3/uL (134-434); RBC 3.71 M/mm3 (4.00-5.60); RDW 15.1 % (11.9-15.9); WHITE BLOOD COUNT 7.5 K/mm3 (4.0-10.0)
[2024-01-17] MEDS: methylPREDNISolone NA SUCC 125 MG/2 ML VIAL IVPB ONE (18:53)
[2024-01-17 18:57] LABS: INR 0.88 (0.83-1.09); PROTHROMBIN TIME (PATIENT) 10.2 SEC (9.7-13.0)
[2024-01-17 19:11] LABS: POTASSIUM 4.6 mmol/L (3.5-5.1)
[2024-01-17 19:14] LABS: CALCIUM 8.5 mg/dL (8.5-10.1)
[2024-01-17 19:15] LABS: ALBUMIN 3.6 g/dl (3.4-5.0); BLOOD UREA NITROGEN 38.8 mg/dL (7-18)
[2024-01-17 19:18] LABS: CREATININE 2.1 mg/dL (0.55-1.3)
[2024-01-17 19:19] LABS: BILIRUBIN,TOTAL 0.4 mg/dL (0.2-1); TOT PROT 6.3 g/dl (6.4-8.2)
[2024-01-17 19:28] LABS: VENOUS BASE EXCESS -4.8 mmol/L (-2-2); VENOUS O2 SATURATION 73.5 % (70-80); VENOUS PCO2 46.2 mmHg (38-52); VENOUS PH 7.29 (7.310-7.410)
[2024-01-18] MEDS ORDERED: DOCUSATE SODIUM 100 MG CAPSULE (FP) PO PRN (02:36)
[2024-01-18] MEDS ORDERED: ACETAMINOPHEN 325 MG TABLET (FP) PO PRN (02:36)
[2024-01-18] MEDS ORDERED: methylPREDNISolone NA SUCC 40 MG/1 ML VIAL ONE (03:42)
[2024-01-18] MEDS ORDERED: AZITHROMYCIN IVPB 500 MG/250 ML BAG IVPB ONE (03:42)
[2024-01-18] MEDS: AZITHROMYCIN IVPB 500 MG in DEXTROSE 5%-WATER - 250 ML IVPB ONE (03:49)
[2024-01-18] MEDS: methylPREDNISolone NA SUCC 40 MG/1 ML VIAL IVPUSH SCH (03:49)
[2024-01-18 05:28] VITALS: BMI 31.9
[2024-01-18] MEDS: HEPARIN NA (PORCINE) 5,000 UNITS/ML 1ML VIAL SQ SCH (06:56)
[2024-01-18] MEDS: guaiFENesin/D-METHORPHAN TAB.ER.12H PO SCH (06:56)
[2024-01-18 07:04] LABS: HEMATOCRIT 31.1 % (35.4-49); HEMOGLOBIN 10.8 GM/dL (11.7-16.9); MCH 29.9 pg (25.7-33.7); MCHC 34.8 g/dl (32.0-35.9); MEAN CELL VOLUME 86.1 fl (80-96); MEAN PLT VOLUME 7.5 fl (7.5-11.1); PLATELET COUNT 155 10^3/uL (134-434); RBC 3.61 M/mm3 (4.00-5.60); RDW 14.6 % (11.9-15.9); WHITE BLOOD COUNT 9.8 K/mm3 (4.0-10.0)
[2024-01-18 07:14] LABS: POTASSIUM 4.8 mmol/L (3.5-5.1)
[2024-01-18 07:15] LABS: BLOOD UREA NITROGEN 43.4 mg/dL (7-18); CALCIUM 8.3 mg/dL (8.5-10.1); MAGNESIUM 2.1 mg/dL (1.8-2.4)
[2024-01-18 07:19] LABS: CREATININE 2.3 mg/dL (0.55-1.3)
[2024-01-18] MEDS: ALBUTEROL SO4 2.5/IPRATROPIUM 0.5 INH SOL 3 ML VIAL.NEB. NEB SCH (08:20)
[2024-01-18] MEDS: metoPROLOL SUCCINATE 25 MG TAB.SR.24H (FP) PO SCH (09:27)
[2024-01-18] MEDS: amLODIPine BESYLATE 10 MG TABLET (FP) PO SCH (09:29)
[2024-01-18] MEDS: ASPIRIN COATED 81 MG TABLET.EC PO SCH (09:29)
[2024-01-18] MEDS: CHOLECALCIFEROL (VIT D3) 400 UNIT (10 MCG) TABLET PO SCH (09:30)
[2024-01-18] MEDS: TAMSULOSIN HCL 0.4 MG CAP PO SCH (09:31)
[2024-01-18 09:44] LABS: ANISOCYTOSIS 0; HELMET CELLS 0; HOWELL-JOLLY BODIES 0; MACROCYTOSIS 0; OVALOCYTE 0; ROULEAU 0; SICKELED CELLS 0; TARGET CELLS 0; TEAR DROP CELLS 0; TOXIC GRANULATION 0
[2024-01-18] MEDS: BUDESONIDE/FORMETEROL FUMARATE 160/4.5 mcg INHALER IH SCH (15:47)
[2024-01-18] MEDS: NICOTINE 21 MG/24 HOURS TOPICAL PATCH TD SCH (15:48)
[2024-01-18] MEDS: FLUTICASONE PROP 0.05% 16 GM NASAL SPRAY NS SCH (15:48)
[2024-01-18] MEDS: ATORVASTATIN CA 80 MG TABLET (FP) PO SCH (21:38)
[2024-01-18] MEDS ORDERED: ATORVASTATIN CA 40 MG TABLET (FP) PO SCH (22:00)
[2024-01-19] MEDS: guaiFENesin 200 MG/10 ML 10 ML UNIT-DOSE CUPS PO ONE (02:23)
[2024-01-19 08:09] LABS: BASO % 0.1 % (0-2.0); HEMATOCRIT 29.8 % (35.4-49); LYMPH % 5.8 % (8-40); MCH 29.2 pg (25.7-33.7); MCHC 33.4 g/dl (32.0-35.9); MEAN CELL VOLUME 87.4 fl (80-96); MONO % 5.3 % (3.8-10.2); NEUT % 88.8 % (42.8-82.8); PLATELET COUNT 161 10^3/uL (134-434); RBC 3.41 M/mm3 (4.00-5.60); RDW 14.6 % (11.9-15.9); WHITE BLOOD COUNT 14.1 K/mm3 (4.0-10.0)
[2024-01-19 08:25] LABS: POTASSIUM 4.9 mmol/L (3.5-5.1)
[2024-01-19 08:27] LABS: CALCIUM 8.6 mg/dL (8.5-10.1)
[2024-01-19 08:28] LABS: ALBUMIN 3.5 g/dl (3.4-5.0); BLOOD UREA NITROGEN 63.6 mg/dL (7-18)
[2024-01-19 08:31] LABS: CREATININE 2.9 mg/dL (0.55-1.3)
[2024-01-19 08:32] LABS: BILIRUBIN,TOTAL 0.5 mg/dL (0.2-1); TOT PROT 6.1 g/dl (6.4-8.2)
[2024-01-19] MEDS: PANTOPRAZOLE 40 MG TABLET PO SCH (10:33)
[2024-01-19] MEDS: AZITHROMYCIN IVPB 500 MG/250 ML BAG IVPB SCH (10:34)
[2024-01-19 12:04] LABS: EPI CELLS 11 /uL (0-25.1); HYALINE CASTS 5 /uL (0-3.1); PH,URINE 5.5 (5.0-8.0); URINE APPEARANCE CLEAR; URINE BACTERIA 3 /uL (0-1359); URINE BILIRUBIN NEGATIVE (NEGATIVE); URINE COLOR YELLOW; URINE GLUCOSE (UA) TRACE (NEGATIVE); URINE KETONE NEGATIVE (NEGATIVE); URINE LEUK ESTERASE NEGATIVE (NEGATIVE); URINE NITRITE NEGATIVE (NEGATIVE); URINE PROTEIN 3+ (NEGATIVE); URINE RBC 24 /uL (0-23.9); URINE UROBILINOGEN 0.2 mg/dL (0.2-1.0); URINE WBC 17 /uL (0-25.8)
[2024-01-20] MEDS: guaiFENesin 200 MG/10 ML 10 ML UNIT-DOSE CUPS PO ONE (00:54)
[2024-01-20 08:13] LABS: POTASSIUM 5.3 mmol/L (3.5-5.1)
[2024-01-20 08:20] LABS: ALBUMIN 3.5 g/dl (3.4-5.0); BLOOD UREA NITROGEN 80.8 mg/dL (7-18); CALCIUM 8.7 mg/dL (8.5-10.1)
[2024-01-20 08:25] LABS: BILIRUBIN,TOTAL 0.4 mg/dL (0.2-1); TOT PROT 6.2 g/dl (6.4-8.2)
[2024-01-20] MEDS ORDERED: guaiFENesin 200 MG/10 ML 10 ML UNIT-DOSE CUPS PO PRN (13:25)
[2024-01-21] MEDS: ALBUTEROL SO4 2.5/IPRATROPIUM 0.5 INH SOL 3 ML VIAL.NEB. NEB PRN (04:11)
[2024-01-21] MEDS: guaiFENesin/D-METHORPHAN HB 10 ML UNIT-DOSE CUPS PO PRN (13:08)
[2024-01-21 14:41] LABS: POTASSIUM 5.5 mmol/L (3.5-5.1)
[2024-01-21 14:44] LABS: ALBUMIN 3.6 g/dl (3.4-5.0); BLOOD UREA NITROGEN 91.7 mg/dL (7-18); CALCIUM 8.3 mg/dL (8.5-10.1)
[2024-01-21 14:48] LABS: CREATININE 3.3 mg/dL (0.55-1.3)
[2024-01-21 14:49] LABS: BILIRUBIN,TOTAL 0.4 mg/dL (0.2-1); TOT PROT 6.2 g/dl (6.4-8.2)
[2024-01-21 14:52] LABS: HEPATITIS B SURFACE AG MATERN REACTIVE (NONREACTIVE)
[2024-01-21 15:21] VITALS: RESP 18
[2024-01-21 16:07] LABS: HEPATITIS B SURFACE AG CONFIRM CONFIRMED (NONREACTIVE)
[2024-01-21] MEDS: SODIUM POLYSTYRENE SULFONATE 15 GM/60 ML BOTTLE PO ONE (17:12)
[2024-01-22 07:46] LABS: HEMATOCRIT 29.7 % (35.4-49); MCH 29.6 pg (25.7-33.7); MCHC 33.7 g/dl (32.0-35.9); MEAN CELL VOLUME 87.8 fl (80-96); MEAN PLT VOLUME 8.5 fl (7.5-11.1); PLATELET COUNT 166 10^3/uL (134-434); RBC 3.38 M/mm3 (4.00-5.60); RDW 15.1 % (11.9-15.9); WHITE BLOOD COUNT 11.1 K/mm3 (4.0-10.0)
[2024-01-22 08:01] LABS: ALBUMIN 3.4 g/dl (3.4-5.0); BLOOD UREA NITROGEN 98.8 mg/dL (7-18); CALCIUM 7.9 mg/dL (8.5-10.1); POTASSIUM 5.7 mmol/L (3.5-5.1)
[2024-01-22 08:05] LABS: CREATININE 3.3 mg/dL (0.55-1.3)
[2024-01-22 08:06] LABS: BILIRUBIN,TOTAL 0.4 mg/dL (0.2-1)
[2024-01-22 09:03] LABS: ANISOCYTOSIS 0; MACROCYTOSIS 0
[2024-01-22] MEDS: SODIUM ZIRCONIUM CYCLOSILICATE (LOKELMA) 5 GM PACKET PO SCH (14:46)
[2024-01-22] MEDS: methylPREDNISolone NA SUCC 40 MG/1 ML VIAL IVPUSH SCH (21:33)
[2024-01-23] MEDS: ALPRAZolam 1 MG TABLET PO PRN (00:49)
[2024-01-23] MEDS: AZITHROMYCIN 250 MG TABLET PO SCH (10:49)
[2024-01-23 12:39] LABS: HEMATOCRIT 32.3 % (35.4-49); HEMOGLOBIN 10.7 GM/dL (11.7-16.9); MCH 29.3 pg (25.7-33.7); MCHC 33.1 g/dl (32.0-35.9); MEAN CELL VOLUME 88.6 fl (80-96); MEAN PLT VOLUME 8.3 fl (7.5-11.1); PLATELET COUNT 180 10^3/uL (134-434); RBC 3.65 M/mm3 (4.00-5.60); RDW 15.1 % (11.9-15.9); WHITE BLOOD COUNT 11.8 K/mm3 (4.0-10.0)
[2024-01-23 13:01] LABS: POTASSIUM 5.1 mmol/L (3.5-5.1)
[2024-01-23 13:04] LABS: ALBUMIN 3.3 g/dl (3.4-5.0); BLOOD UREA NITROGEN 92.7 mg/dL (7-18)
[2024-01-23 13:07] LABS: CREATININE 2.8 mg/dL (0.55-1.3); PHOSPHOROUS 5.1 mg/dL (2.5-4.9)
[2024-01-23 13:08] LABS: BILIRUBIN,TOTAL 0.5 mg/dL (0.2-1)
[2024-01-23 13:09] LABS: TOT PROT 5.8 g/dl (6.4-8.2)
[2024-01-23 20:07] LABS: C-ANCA <1:20 titer (Neg:<1:20)
[2024-01-23] MEDS: SODIUM CHLORIDE NASAL SPRAY 44 ML BOTTLE NS PRN (22:27)
[2024-01-24 08:43] LABS: POTASSIUM 5.2 mmol/L (3.5-5.1)
[2024-01-24 08:45] LABS: BLOOD UREA NITROGEN 91.5 mg/dL (7-18); CALCIUM 7.7 mg/dL (8.5-10.1)
[2024-01-24 08:46] LABS: MAGNESIUM 2.8 mg/dL (1.8-2.4)
[2024-01-24 08:48] LABS: CREATININE 2.9 mg/dL (0.55-1.3); PHOSPHOROUS 4.2 mg/dL (2.5-4.9)
[2024-01-24 08:50] LABS: BILIRUBIN,TOTAL 0.5 mg/dL (0.2-1); TOT PROT 5.4 g/dl (6.4-8.2)
[2024-01-24] MEDS: FUROSEMIDE 40 MG TABLET (FP) PO SCH (14:38)
[2024-01-25 09:16] LABS: POTASSIUM 4.3 mmol/L (3.5-5.1)
[2024-01-25 09:20] LABS: CALCIUM 7.4 mg/dL (8.5-10.1)
[2024-01-25 09:21] LABS: BLOOD UREA NITROGEN 92.3 mg/dL (7-18)
[2024-01-25 09:24] LABS: CREATININE 2.7 mg/dL (0.55-1.3)
[2024-01-25] MEDS: methylPREDNISolone NA SUCC 40 MG/1 ML VIAL IVPUSH SCH (09:30)
[2024-01-25 12:07] VITALS: BP 130/54; PULSE 55; TEMP 97.9
== END 2024-01-25 18:19 | disposition home or self-care (01) | DRG 191 ==
LOC: JER 16:47 → JERBED 18:55 → J4W 01-18 04:57
PROVIDERS: ADMIT Internal Medicine; ATTEND Internal Medicine
DX: J44.1 Chronic obstructive pulmonary disease with (acute) exacerbation (principal); I13.0 Hypertensive heart and chronic kidney disease with heart failure and stage 1 through stage 4 chronic kidney disease, or unspecified chronic kidney disease; N17.9 Acute kidney failure, unspecified; I50.32 Chronic diastolic (congestive) heart failure; Z68.31 Body mass index [BMI] 31.0-31.9, adult; E78.5 Hyperlipidemia, unspecified; I73.9 Peripheral vascular disease, unspecified; I25.10 Atherosclerotic heart disease of native coronary artery without angina pectoris; J44.0 Chronic obstructive pulmonary disease with (acute) lower respiratory infection; N40.0 Benign prostatic hyperplasia without lower urinary tract symptoms; F17.200 Nicotine dependence, unspecified, uncomplicated; J20.9 Acute bronchitis, unspecified; E87.5 Hyperkalemia; N18.9 Chronic kidney disease, unspecified; Z95.5 Presence of coronary angioplasty implant and graft
CPT/HCPCS: 0241U-QW; 36415; 71045-TC-FY; 71250-TC; 76775-TC; 76856-TC; 80048; 80053; 81003; 82550; 82553; 82803; 82962; 83036; 83516; 83520; 83735; 83880; 84100; 84153; 84443; 84484; 85025; 85027; 85610; 85730; 86256; 86704; 86850; 86900; 86901; 87340; 93005; 93010; 93306-TC; 93970-TC; 94640; 99285-25; J1644